=== PATIENT | female | born 1995 | race African-American/Black ===

== ENCOUNTER 2022-01-31 08:07 | Emergency (ER) | payer MEDICAID, OTHER ==
[~2022-01-31] VITALS: Ht 157.5 cm; Wt 79.4 kg
[2022-01-31 08:21] VITALS: BP 110/48
[2022-01-31] MEDS ORDERED: IBUP800T27 PO (08:25)
[2022-01-31] MEDS ORDERED: METH750T22 PO (08:25)
[2022-01-31] MEDS ORDERED: KETOROLAC TROMETH 60MG/2ML VIAL IM ONE (08:30)
== END 2022-01-31 08:31 | disposition home or self-care (01) ==
LOC: ER 08:07
DX: M43.6 Torticollis (principal); Z79.1 Long term (current) use of non-steroidal anti-inflammatories (NSAID); Z79.899 Other long term (current) drug therapy
CPT/HCPCS: 96372; 99283; J1885

== ENCOUNTER 2022-09-30 08:05 | Emergency (ER) | payer OTHER ==
[~2022-09-30] VITALS: Ht 157.5 cm; Wt 80.5 kg
[~2022-09-30 08:05] MED LIST: IBUP800T27 PO; METH750T22 PO
[2022-09-30] MEDS ORDERED: KETOROLAC TROMETH 60MG/2ML VIAL IM ONE (08:45)
[2022-09-30 08:46] VITALS: BP 118/54
[2022-09-30] MEDS ORDERED: IBUP800T26 PO (10:18)
== END 2022-09-30 10:32 | disposition home or self-care (01) ==
LOC: ER 08:05
DX: S16.1XXA Strain of muscle, fascia and tendon at neck level, initial encounter (principal); S40.011A Contusion of right shoulder, initial encounter; V43.62XA Car passenger injured in collision with other type car in traffic accident, initial encounter; Y93.89 Activity, other specified; Y92.89 Other specified places as the place of occurrence of the external cause; Y99.8 Other external cause status
CPT/HCPCS: 72040; 73030; 96372; 99284; J1885